=== PATIENT | female | born 1980 | race Caucasian/White ===

== ENCOUNTER 2016-12-24 12:47 | Emergency (ER) | payer MEDICAID, OTHER ==
[2016-12-24 12:47] VITALS: BMI 37.3
[2016-12-24 12:59] VITALS: BP 122/79; PULSE 78; TEMP 98.1; O2SAT 100
--- NOTE | 2016-12-24 13:25 | C.PDOC ---
History Of Present Illness 36 yr old female presents to the ER with complaints of swelling right upper lip since waking up. Patient reports taking unknown antibiotic for UTI for the last 5 days from [facility] [place]. Patient denies use of BRYSON inhibitor, fever, chills, tongue swelling or neck pain. History of alcohol abuse and anxiety. Time Seen by Provider: 12/24/16 13:14 Chief Complaint (Nursing): Allergic Reaction History Per: Patient History/Exam Limitations: None Onset/Duration Of Symptoms: Sudden Onset (woke up with it) Past Medical History Reviewed: Historical Data, Nursing Documentation, Vital Signs Vital Signs: Last Vital Signs Temp 98.1 F 12/24/16 12:59 Pulse 78 12/24/16 12:59 Resp 18 12/24/16 13:35 BP 122/79 12/24/16 12:59 Pulse Ox 100 12/24/16 13:35 - Medical History PMH: Anemia (CHILDHOOD), Anxiety, Depression, Fractures (LEFT HAND NO SURGERY), Migraine, Seizures (STARTED 2006/LAST IN 01/07) - [facility] Procedures APPLICATION OF SPLINT (05/20/04) BILAT ENDOS OCC TUBE NEC (05/28/13) INJECT/INFUSE NEC (06/17/05) LAPAROSCOP LYSIS-PERITONEAL ADHES (05/28/13) MANUAL ASSIST DELIV NEC (08/03/12) REPAIR OB LACERATION NEC (08/03/12) Family History: States: No Known Family Hx - Social History Hx Tobacco Use: No Hx Alcohol Use: No Hx Substance Use: No - Immunization History Hx Tetanus Toxoid Vaccination: No Hx Influenza Vaccination: No Hx Pneumococcal Vaccination: No Review Of Systems Except As Marked, All Systems Reviewed And Found Negative. Constitutional: Negative for: Fever, Chills ENT: Positive for: Other ((+) Right upper lip swelling. (-) Tongue swelling.) Musculoskeletal: Negative for: Neck Pain Physical Exam - Physical Exam Appears: Non-toxic, No Acute Distress Skin: Warm, Dry, No Rash Head: Atraumatic, Normacephalic Tongue: Normal Appearing, No Swelling, No Lesions Lips: No Abrasion, No Laceration, Other ((+) Mild edema to right upper lip.) Gingiva: Normal Appearing, No Swelling, No Tender Throat: Normal, No Erythema, No Exudate Neck: Normal, Normal ROM, Supple Cardiovascular: Rhythm Regular, No Murmur Respiratory: Normal Breath Sounds, No Rales, No Rhonchi, No Stridor, No Wheezing Extremity: Normal ROM, No Swelling Neurological/Psych: Oriented x3, Normal Speech, Normal Motor ED Course And Treatment O2 Sat by Pulse Oximetry: 100 (RA) Pulse Ox Interpretation: Normal Medical Decision Making Medical Decision Making: PLAN: * Benadryl PO upper lip swelling since this AM no BRYSON, concerning for angioedema, no mouth/lip/gums swelling/edema recent meds are ? abx for UTI for past 5 days. ? Macrobid? Started Medrol Dose Pack this AM from prior tx never taken from [facility] [place]. Stop PO ABX for ? UTI Continue medrol dose pack. Disposition Doctor Will See Patient In The: Office Counseled Patient/Family Regarding: Studies Performed, Diagnosis - Disposition Referrals: Keily Weiss MD [Medical Doctor] - Disposition: HOME/ ROUTINE Disposition Time: 13:24 Condition: GOOD Additional Instructions: continue the MEdrol Dose Pack as you started this morning. Take and complete as directed. Stop taking the ? antibiotic for ? UTI- may be an allergic reaction. Return to ED for worse swelling/edema. Instructions: Edema (ED) Forms: [facility] (Greek) - Clinical Impression Clinical Impression: Lip edema - Scribe Statement The provider has reviewed the documentation as recorded by the Cliffibling Adam Provider Attestation: All medical record entries made by the Cliffibling were at my direction and personally dictated by me. I have reviewed the chart and agree that the record accurately reflects my personal performance of the history, physical exam, medical decision making, and the department course for this patient. I have also personally directed, reviewed, and agree with the discharge instructions and disposition.
[2016-12-24 13:35] VITALS: RESP 18
== END 2016-12-24 13:35 | disposition home or self-care (01) ==
LOC: C.ER 12:47
DX: R60.9 Edema, unspecified (principal)

== ENCOUNTER 2018-06-10 19:53 | Emergency (ER) | payer MEDICAID, OTHER ==
[2018-06-10 19:53] VITALS: BMI 37.3
[2018-06-10 20:15] VITALS: TEMP 98.9; O2SAT 99
--- NOTE | 2018-06-10 21:26 | C.PDOC ---
History Of Present Illness 37 year old female presents to ED with complaint of right greater than left - sided headache behind her eye for the past week. Patient states that she has been taking night time cold medicine with improvement, but has not taken any day time medicine. NSAIDS cause patient to have anaphylaxis. She denies head trauma, vision changes, weakness, numbness, or facial droop. Time Seen by Provider: 06/10/18 21:15 Chief Complaint (Nursing): Headache History Per: Patient History/Exam Limitations: no limitations Onset/Duration Of Symptoms: Days (7) Current Symptoms Are (Timing): Still Present Quality: "Pain" Preceeding Symptoms: denies: Visual Disturbances Associated Symptoms: denies: Photophobia, Blurred Vision, Extremity Weakness Past Medical History Reviewed: Historical Data, Nursing Documentation, Vital Signs Vital Signs: Last Vital Signs Temp 98.9 F 06/10/18 20:07 Pulse 80 06/10/18 20:07 Resp 16 06/10/18 20:07 BP 121/79 06/10/18 20:07 Pulse Ox 99 06/10/18 20:07 - Medical History PMH: Anemia, Anxiety, Depression, Fractures (left hand), Migraine, Post Traumatic Stress Disorder, Seizures (STARTED 2006/LAST IN 01/07) Denies: Diabetes, Hepatitis, Chronic Kidney Disease Surgical History: No Surg Hx - [facility] Procedures APPLICATION OF SPLINT (05/20/04) BILAT ENDOS OCC TUBE NEC (05/28/13) INJECT/INFUSE NEC (06/17/05) LAPAROSCOP LYSIS-PERITONEAL ADHES (05/28/13) MANUAL ASSIST DELIV NEC (08/03/12) REPAIR OB LACERATION NEC (08/03/12) Family History: States: Unknown Family Hx - Social History Hx Tobacco Use: No Hx Alcohol Use: No Hx Substance Use: No - Immunization History Hx Tetanus Toxoid Vaccination: No Hx Influenza Vaccination: No Hx Pneumococcal Vaccination: No Review Of Systems Constitutional: Negative for: Weakness Eyes: Negative for: Vision Change Neurological: Positive for: Headache (right- side < left side, behind the eyes). Negative for: Weakness, Numbness, Dizziness Physical Exam - Physical Exam Appears: Well, Non-toxic, No Acute Distress Skin: Normal Color, Warm, Dry Head: Atraumatic, Normacephalic Eye(s): bilateral: Normal Inspection, PERRL, EOMI Ear(s): Bilateral: Normal Nose: Other (increased bilateral nasal passage erythema, right-side greater than left-side; kissing turbinates) Throat: Normal, No Erythema, No Exudate Neck: Normal ROM, No Supple Chest: Symmetrical, No Deformity Cardiovascular: Rhythm Regular, No Murmur Respiratory: No Accessory Muscle Use, No Rales, No Rhonchi, No Wheezing Gastrointestinal/Abdominal: Soft, No Tenderness Extremity: Capillary Refill (<2 seconds) Neurological/Psych: Oriented x3, Normal Speech, Normal Cognition, Normal Sensation ED Course And Treatment O2 Sat by Pulse Oximetry: 99 (in RA) Progress Note: Patient given Tylenol and Sudafed. Medical Decision Making Medical Decision Making: sinus headache x 5 days intermittent appropriate tx w good effect allergy to NSAIDS- anaphylaxis Disposition Doctor Will See Patient In The: Office Counseled Patient/Family Regarding: Studies Performed, Diagnosis - Disposition Referrals: Keily Weiss MD [Medical Doctor] - Disposition: HOME/ ROUTINE Disposition Time: 21:25 Condition: GOOD Additional Instructions: Tylenol 1000 mg every 6 hours as needed Pseudafed 30-60 mg every 6 hours- nasal decongestant Afrin spray: As directed. No more than 3 days only! Flonase [place]: nasal steroid- 1 spray every 12 hours, until Summertime- prevents nasal congestion due to allergies Claritin 10 mg daily- take in AM- for seasonal allergy symptoms which provoke nasal passage inflammation Instructions: Sinus Headache (DC) Forms: [facility] (Romanian) - Clinical Impression Clinical Impression: Headache around the eyes - Scribe Statement The provider has reviewed the documentation as recorded by the Scribe (Ivy Carrillo) All medical record entries made by the Scribe were at my direction and personally dictated by me. I have reviewed the chart and agree that the record accurately reflects my personal performance of the history, physical exam, medical decision making, and the department course for this patient. I have also personally directed, reviewed, and agree with the discharge instructions and disposition.
[2018-06-10 21:45] VITALS: BP 120/80; PULSE 70; RESP 14
== END 2018-06-10 21:45 | disposition home or self-care (01) ==
LOC: C.ER 19:53
DX: R51 Headache (principal)